=== PATIENT | female | born 1970 | race Hispanic/Latino ===

== ENCOUNTER 2018-03-12 20:13 | Emergency (ER) | payer BC ==
[~2018-03-12] VITALS: Ht 162.6 cm; Wt 73.9 kg
[~2018-03-12 20:13] MED LIST: GEMFIBROZIL600 MG PO; LISINOPRIL10 MG PO; TRINESSA1 EACH PO
[2018-03-12] MEDS ORDERED: HYDROCODONE/APAP 10MG-325MG TAB PO ONE (20:45)
[2018-03-12] MEDS ORDERED: CYCLOBENZAPRINE HCL 10 MG TAB PO ONE (20:45)
--- NOTE | 2018-03-12 21:44 | Diagnostic Imaging Report ---
CHEST 2 VIEWS, Technique: CHEST 2 VIEWS Comparison: None Clinical history: Shortness of breath DISCUSSION: Prominent cardiac silhouette. No consolidation or edema. No pleural effusion or pneumothorax. IMPRESSION: Borderline cardiomegaly. Otherwise no acute abnormality Signed by: Dr Connie Luis MD on 03/12/2018 9:41 PM
[2018-03-12 22:20] LABS: BASOPHILS % 0.2 % (0.0-1.0); EOSINOPHILS # (AUTO) 0.2 (0.0-0.4); EOSINOPHILS % 2.7 % (0.0-6.0); HEMATOCRIT 35.9 % (34.2-44.1); HEMOGLOBIN 12.8 g/dL (12.0-16.0); LYMPHOCYTES # (AUTO) 1.9 (1.0-3.2); LYMPHOCYTES % 30.9 % (18.0-39.1); MEAN CORPUSCULAR HEMOGLOBIN 32.2 pg (28-32); MEAN CORPUSCULAR HGB CONC 35.7 g/dL (31-35); MEAN CORPUSCULAR VOLUME 90.2 fL (81-99); MONOCYTES # (AUTO) 0.3 (0.2-0.8); MONOCYTES % 4.5 % (4.4-11.3); NEUTROPHILS # (AUTO) 3.9 (2.1-6.9); NEUTROPHILS % 61.4 % (38.7-80.0); PLATELET COUNT 269 x10e3/uL (140-360); RED BLOOD COUNT 3.98 x10e6/uL (3.6-5.1); RED CELL DISTRIBUTION WIDTH 12.5 % (11.7-14.4)
[2018-03-12 22:32] LABS: ALANINE AMINOTRANSFERASE 17 IU/L (0-55); ALBUMIN 3.8 g/dL (3.5-5.0); ALKALINE PHOSPHATASE 64 IU/L (40-150); ANION GAP 11.2 mmol/L (8-16); BLOOD UREA NITROGEN 17 mg/dL (7-26); BUN/CREATININE RATIO 22 (6-25); CALCIUM 10.1 mg/dL (8.4-10.2); CARBON DIOXIDE 28 mmol/L (22-29); CHLORIDE 102 mmol/L (98-107); CREATINE KINASE 172 IU/L (29-168); CREATININE, SERUM 0.78 mg/dL (0.57-1.11); EST GLOMERULAR FILTRATION RATE > 60 ML/MIN (60-); GLUCOSE 96 mg/dL (74-118); POTASSIUM 3.2 mmol/L (3.5-5.1); SODIUM 138 mmol/L (136-145)
[2018-03-12] MEDS ORDERED: KETOROLAC TROMETHAMINE 30 MG/ML VIAL IV STA (22:40)
[2018-03-12 22:47] LABS: INR 1.01; PROTHROMBIN TIME 12.5 seconds (11.9-14.5)
[2018-03-12 22:48] LABS: PARTIAL THROMBOPLASTIN TIME 27.2 seconds (23.8-35.5)
[2018-03-12] MEDS ORDERED: POTASSIUM CHLORIDE 20 MEQ TAB CR PO STA (23:33)
[2018-03-12 23:42] VITALS: BP 144/93
== END 2018-03-13 | disposition home or self-care (01) ==
LOC: ER 20:13
DX: M54.6 Pain in thoracic spine (principal); R07.89 Other chest pain; E87.6 Hypokalemia; I10 Essential (primary) hypertension
CPT/HCPCS: 36415; 71046; 80053; 82550; 82553; 84484; 85025; 85379; 85610; 85730; 93005; 99284; J1885